=== PATIENT | male | born 1950 | race Caucasian/White ===

== ENCOUNTER 2018-02-11 14:50 | Emergency (ER) | payer MEDICARE, OTHER ==
--- NOTE | 2018-02-11 15:21 | EDM.PDOC ---
ED HPI GENERAL MEDICAL PROBLEM - General Chief Complaint: Upper Extremity Injury/Pain Stated Complaint: FELL ON LEFT HAND Time Seen by Provider: 02/11/18 15:08 Source of Information: Reports: Patient History Limitations: Reports: No Limitations - History of Present Illness INITIAL COMMENTS - FREE TEXT/NARRATIVE: 67-year-old male who fell when he tripped over the right of a tree, jamming his left hand in the ground and hyperextending his fingers. He heard a "pop" and now is having difficulty moving the fingers but there is no deformity or swelling. No wrist discomfort. No other injury. Onset: Sudden Duration: Hour(s): (Within the last 2 hours) Location: Reports: Upper Extremity, Left Severity: Mild Associated Symptoms: Reports: No Other Symptoms Left Hand Pain Score (Numeric/FACES): 4 - Related Data Allergies Allergy/AdvReac Type Severity Reaction Status Date / Time codeine Allergy Nausea Verified 02/11/18 15:11 Home Meds: Home Meds Tamsulosin HCl [Flomax] 0.4 mg PO DAILY 02/11/18 [History] Past Medical History - Past Health History Medical/Surgical History: Denies Medical/Surgical History - Infectious Disease History Infectious Disease History: Reports: Chicken Pox, Measles, Mumps Social & Family History - Tobacco Use Smoking Status *Q: Never Smoker - Caffeine Use Caffeine Use: Reports: Coffee - Recreational Drug Use Recreational Drug Use: No Review of Systems - Review of Systems Review Of Systems: See Below Constitutional: Denies: Fever Respiratory: Reports: No Symptoms GI/Abdominal: Denies: Nausea, Vomiting Skin: Denies: Bruising Neurological: Denies: Paresthesia ED EXAM, GENERAL - Physical Exam Exam: See Below Exam Limited By: No Limitations General Appearance: Alert, No Apparent Distress Respiratory/Chest: No Respiratory Distress Extremities: Other (Exam is otherwise limited to the left hand and arm. He has no tenderness around the elbow or wrist. There is pain with movement of the index and middle and ring finger through the MP joints, but no significant swelling, deformity or bruising.) Course - Vital Signs Last Recorded V/S: Last Vital Signs Temp 98.8 F 02/11/18 15:07 Pulse 62 02/11/18 15:07 Resp 16 02/11/18 15:07 BP 124/75 02/11/18 15:07 Pulse Ox 97 02/11/18 15:07 - Orders/Labs/Meds Orders: Active Orders 24 hr Category Date Time Status Hand Comp Min 3V Lt [CR] Stat Exams 02/11/18 15:08 Taken DME for Discharge [COMM] Stat Oth 02/11/18 15:51 Ordered - Re-Assessments/Exams Free Text/Narrative Re-Assessment/Exam: 02/11/18 15:23 An x-ray of the left hand was obtained. 02/11/18 15:56 X-ray confirmed a minimally displaced metacarpal fracture of the middle finger. A 14 inch Ortho-Glass splint was applied to the hand, he was given a sling, a copy of the x-ray and he'll follow-up with orthopedics next week when he returns home to the [place] area. He was also given 10 hydrocodone for extra pain control. Departure - Departure Time of Disposition: 16:16 Disposition: Home, Self-Care 01 Condition: Good Clinical Impression: Fracture, metacarpal shaft Qualifiers: Encounter type: initial encounter Metacarpal bone: third Fracture type: closed Fracture alignment: displaced Laterality: left Qualified Code(s): S62.323A - Displaced fracture of shaft of third metacarpal bone, left hand, initial encounter for closed fracture - Discharge Information Instructions: Metacarpal Fracture Referrals: PCP,None [Primary Care Provider] - Forms: ED Department Discharge Care Plan Goals: Keep splint on, use sling and take ibuprofen or naproxen for pain. Add stronger pain medication if needed, and recheck with orthopedics next week when home. - My Orders Last 24 Hours: My Active Orders 02/11/18 15:08 Hand Comp Min 3V Lt [CR] Stat 02/11/18 15:51 DME for Discharge [COMM] Stat - Assessment/Plan Last 24 Hours: My Active Orders 02/11/18 15:08 Hand Comp Min 3V Lt [CR] Stat 02/11/18 15:51 DME for Discharge [COMM] Stat
--- NOTE | 2018-02-14 08:33 | CR ---
Hand Comp Min 3V Lt CLINICAL HISTORY: Injury FINDINGS: There is a a minimally displaced oblique fracture through the third the metacarpal. There i s a nondisplaced fracture through the fourth metacarpal base. Impression: Fractures of the third and fourth metacarpals
== END 2018-02-11 16:17 | disposition home or self-care (01) ==
LOC: JP.ED 14:50
DX: S62.323A Displaced fracture of shaft of third metacarpal bone, left hand, initial encounter for closed fracture (principal); Z88.5 Allergy status to narcotic agent; Z79.899 Other long term (current) drug therapy; W19.XXXA Unspecified fall, initial encounter
CPT/HCPCS: 29125; 73130-26-LT; 73130-LT; 99284-25